=== PATIENT | female | born 1980 | race Caucasian/White ===

== ENCOUNTER 2016-10-27 09:30 | Outpatient (CLI) | payer OTHER ==
[~2016-10-27] VITALS: Ht 172.7 cm; Wt 106.8 kg
[2016-10-27] MEDS ORDERED: OMEPRAZOLE40 MG PO (14:25)
[2016-10-27] MEDS ORDERED: COZAAR50 MG PO (14:26)
[2016-10-27] MEDS ORDERED: LEXAPRO20 MG PO (14:26)
[2016-10-27] MEDS ORDERED: TRICOR48 MG PO (14:27)
[2016-10-27 14:40] VITALS: BP 123/77; Ht 172.7 cm; Wt 106.8 kg
[2016-10-27 16:29] LABS: BASOPHILS 0.6 % (0.0-2.0); HEMATOCRIT 32.2 % (36.0-48.0); HEMOGLOBIN 9.2 g/dL (12-16); IMMATURE GRANULOCYTES 0.2 % (0-5); LYMPHOCYTES 31.5 % (15-50); MCHC 28.6 g/dL (31.0-37.0); MCV 66.7 fL (80.0-100.0); MEAN PLATELET VOLUME 10.1 fL (7.4-10.4); MONOCYTES 7.1 % (2-11); NEUTROPHILS 59.6 % (40-80); PLATELET COUNT 212 10x3/uL (130-400); RBC 4.83 10x6/uL (4.00-5.40); WBC 8.3 10x3/uL (4.8-10.8)
--- NOTE | 2016-10-27 17:19 | NUR ---
1600 IV DC WITH CATHER TIP INTACT
[2016-12-22] MEDS ORDERED: TRICOR145 MG PO (11:15)
== END 2016-10-27 16:30 | disposition home or self-care (01) ==
LOC: D.OPS 09:30
PROVIDERS: Family Medicine
DX: D64.9 Anemia, unspecified (principal)

== ENCOUNTER 2016-12-09 03:20 | Emergency (ER) | payer OTHER ==
[2016-10-27 14:40] VITALS: BMI 35.8
[~2016-12-09 03:20] MED LIST: COZAAR50 MG PO; LEXAPRO20 MG PO; OMEPRAZOLE40 MG PO; TRICOR48 MG PO
[2016-12-09 04:50] LABS: BASOPHILS 0.4 % (0.0-2.0); EOSINOPHILS 1.5 % (0-7); HEMATOCRIT 32.1 % (36.0-48.0); HEMOGLOBIN 9.1 g/dL (12-16); IMMATURE GRANULOCYTES 0.3 % (0-5); LYMPHOCYTES 32.7 % (15-50); MCHC 28.3 g/dL (31.0-37.0); MCV 67.6 fL (80.0-100.0); MONOCYTES 6.5 % (2-11); NEUTROPHILS 58.6 % (40-80); PLATELET COUNT 189 10x3/uL (130-400); RBC 4.75 10x6/uL (4.00-5.40); RDW 20.3 % (11.5-14.5); WBC 8.9 10x3/uL (4.8-10.8)
[2016-12-09 04:56] LABS: MCH 19.2 pg (26.0-34.0)
[2016-12-09 05:01] LABS: HCG SERUM NEGATIVE (NEGATIVE)
== END 2016-12-09 05:35 | disposition home or self-care (01) ==
LOC: D.ER 03:20
PROVIDERS: Emergency Medicine
DX: N93.9 Abnormal uterine and vaginal bleeding, unspecified (principal); D64.9 Anemia, unspecified; I10 Essential (primary) hypertension; N83.209 Unspecified ovarian cyst, unspecified side; F17.200 Nicotine dependence, unspecified, uncomplicated

== ENCOUNTER 2016-12-25 05:06 | Inpatient (IN) | payer OTHER ==
[2016-12-22 12:04] LABS: BASOPHILS 0.5 % (0-2); HEMATOCRIT 33.1 % (36.0-48.0); HEMOGLOBIN 9.5 g/dL (12-16); IMMATURE GRANULOCYTES 0.2 % (0-5); LYMPHOCYTES 37.2 % (15-50); MCHC 28.7 g/dL (31.0-37.0); MCV 69.5 fL (80.0-100.0); NEUTROPHILS 56.1 % (40-80); PLATELET COUNT 185 10x3/uL (130-400); RBC 4.76 10x6/uL (4.00-5.40); RDW 22.1 % (11.5-14.5); WBC 6.1 10x3/uL (4.8-10.8)
[2016-12-22 12:25] LABS: CALC OSMOLALITY 278 mosm/kg (275-300); CALCIUM 9.6 mg/dL (8.5-10.1); CARBON DIOXIDE 26.5 mmol/L (21.0-32.0); CHLORIDE - SERUM 104 mmol/L (98-107); CREATININE - SERUM 0.6 mg/dL (0.6-1.3); GLUCOSE 99 mg/dL (74-106); POTASSIUM - SERUM 4.2 mmol/L (3.5-5.1); SODIUM 140 mmol/L (136-145); UREA NITROGEN 13 mg/dL (7-18); eGFR NON AFRICAN AMERICAN > 90 mL/min (90-120)
[~2016-12-25] VITALS: Ht 172.7 cm; Wt 107.0 kg
[2016-12-25] VITALS (9 sets, daily range): BP systolic 103–173; BP diastolic 55–76; BMI 35.9
[~2016-12-25 05:06] MED LIST changes: +TRICOR145 MG PO
[2016-12-25 06:01] LABS: HCG URINE NEGATIVE (NEGATIVE)
--- NOTE | 2016-12-25 09:18 | NUR ---
FAMILY UPDATED ON PATIENT STATUS
--- NOTE | 2016-12-25 10:57 | NUR ---
METHALINE BLUE NOTED IN REVELES CATHETER DRAINAGE TUBE AND BAG
--- NOTE | 2016-12-25 11:30 | NUR ---
Received pt by bed from recovery with bedside report from Antoine Silvestre rn. Pt is awake and able to follow commands to move herself stretcher to bed. She does have O2 via NC that is placed on 2l/min, O2 sat at this time is 96%. IV to right wrist patent on LR placed on pump per orders. Abdomen soft to touch with large abd dressing to incision that is clean and dry, fortune to bedside drain with 50ml blue urine to urometer. SCD in place and on pump. Dilaudid STRUCTURAL STEEL DETAILER started and pt demonstrate correct use of supervisor wet pour button, she is rating pain at 8/10 to incision area and her back. Tordal 30mg sivp also given at this time. Pt ask if she could turn to her side due to back pain, reassured that she was able to position to provide most comfort and assistance offered but pt denies and is able to turn herself to her left side. Pillows to back, under abdomen and between her knees used for support and comfort. Side rails up x 2 with phone and call light in reach. Lights dimmed and spouse only per pt request called to room. Pt encouraged rest to aid with pain control.
--- NOTE | 2016-12-25 12:15 | NUR ---
Pt resting with eyes closed, responds answer appropriate. Rates pain at 5/10, denies nausea and is tolerating ice chips and water. Explained to pt and spouse that she could have clear liquids at this time and both state understanding. Urine remains blue in color, 100ml in fortune urometer. Pt does cough weakly when ask and encouraged her to use pillow to brace abdomen to control pain. Side rails up x 2 with phone and call light in reach. pt using her glue jointer feeder as needed. Spouse at bedside.
--- NOTE | 2016-12-25 13:00 | NUR ---
Pt spouse out to desk with request for ice chips, small cup provided.
--- NOTE | 2016-12-25 13:55 | NUR ---
Pt turned to her right side, little assistance from nurses needed. O2 decreased to 1l/min via NC, O2 sat 97-99%. Urine output 300ml per urometer. Pt denies nausea and questions when she will be able to "really eat" and understands that Md will keep on liquids till am but if she begins passing gas to let nurse know and Md can be notified for new orders. Side rails up x 2 with phone and call light in reach. Rates pain at 4/10 after she repositioned. She does use incentive spirometer correctly and coughs x 2. Spouse remains at bedside.
--- NOTE | 2016-12-25 16:00 | NUR ---
Pt awake and visiting with spouse. Rates pain at 6/10 but states "I can tolerate it ok" Howe remains to gravity drain with 275ml to urometer. Pt able to turn herself to left side with no assistance needed. Min. assistance needed to move up in bed. VS as charted with O2 sat of 97% without O2, NC removed and O2 turned off. Continue to deny nausea, also denies wanting any other fluids besides lemon[place] soda at this time. [email or web address], pt denies any questions or concerns at this time, Side rails up x 2 with phone and call light in reach. Spouse remains at bedside.
[2016-12-25 18:08] LABS: BASOPHILS 0.2 % (0-2); EOSINOPHILS 0 % (0-7); HEMATOCRIT 32.7 % (36.0-48.0); HEMOGLOBIN 9.3 g/dL (12-16); IMMATURE GRANULOCYTES 0.1 % (0-5); LYMPHOCYTES 19.5 % (15-50); MCH 20.9 pg (26.0-34.0); MCHC 28.4 g/dL (31.0-37.0); MCV 73.3 fL (80.0-100.0); MONOCYTES 6.3 % (2-11); NEUTROPHILS 73.9 % (40-80); RBC 4.46 10x6/uL (4.00-5.40); RDW 21.8 % (11.5-14.5); WBC 8.7 10x3/uL (4.8-10.8)
[2016-12-25 18:13] LABS: PLATELET COUNT 139 10x3/uL (130-400)
[2016-12-25 18:18] LABS: CALC OSMOLALITY 276 mosm/kg (275-300); CALCIUM 9.2 mg/dL (8.5-10.1); CARBON DIOXIDE 26.8 mmol/L (21.0-32.0); CHLORIDE - SERUM 106 mmol/L (98-107); CREATININE - SERUM 0.6 mg/dL (0.6-1.3); GLUCOSE 95 mg/dL (74-106); POTASSIUM - SERUM 4.1 mmol/L (3.5-5.1); SODIUM 140 mmol/L (136-145); UREA NITROGEN 7 mg/dL (7-18); eGFR NON AFRICAN AMERICAN > 90 mL/min (90-120)
--- NOTE | 2016-12-25 19:03 | NUR ---
Tordal 30mg given sivp for c/o pain that she rates at 5/10. Howe cath emptied with total of 2100ml, IV fluids cleared on pump with 949.40 lr infused and 7mg dilaudid used. bedside report to florencio Lockhart rn. side rails up x 2.
--- NOTE | 2016-12-25 19:14 | NUR ---
BEDSIDE REPORT REC'D FROM Faviola VEGAS RN. PT REC'D ON RIGHT SIDE IN SEMI FOWLERS POSITION. PILLOW REMOVED FROM BACK AND PATIENT ASSISTED WITH MOVING UP IN BED. PAIN 5/10 AT THIS TIME, ABD SORENESS AND "OCCASIONAL BURNING AT MY INCISION." DENIES NEED FOR ADDITIONAL INTERVENTION AT THIS TIME. REPORTS THAT SHE JUST REMOVED ICE PACK. BOWEL SOUNDS PRESENT AND ACTIVE X4 QUADRANTS, DENIES PASSING FLATUS UP TO THIS POINT. ABD PALPATES SOFT. DRSG TO INCISION, CLEAN AND DRY, NO DRAINAGE PRESENT. REVELES PRESENT TO BEDSIDE DRAINAGE. ICE WATER AND SODA GIVEN PER REQUEST. SCD'S ON, REMOVED FOR SKIN ASSESSMENT, SKIN WDL. FAMILY MEMBERS AT BEDSIDE, PT VISITING WITH THEM AT THIS TIME. BED IN LOW POSITION WITH UPPER SIDE RAILS RAISED X2. CL AND PHONE WITHIN REACH. PT VERBALIZED UNDERSTANDING OF CL USE. WILL CONT TO MONITOR AND ASSIST PRN.
--- NOTE | 2016-12-25 20:03 | NUR ---
PT CONTINUES TO VISIT WITH VISITORS. STATES PAIN REMAINS 4-5/10, DENIES NEED FOR FURTHER INTERVENTION AT THIS TIME. REVELES DRAINING WELL. PT COUGHING AND DEEP BREATHING INDEPENDENTLY. INCENTIVE SPIROMETER USED WHILE RN AT BEDSIDE WITH GOOD EFFORT. COUGH NONPRODUCTIVE AT THIS TIME. CUP OF ICE PROVIDED PER REQUEST. DENIES ADDITION NEEDS WILL CONT TO MONITOR AND ASSIST PRN.
--- NOTE | 2016-12-25 21:16 | NUR ---
ROUNDS MADE. PT LYING ON RIGHT SIDE AT THIS TIME. REPORTS THAT SHE REPOSITIONED SELF INDEPENNENLTLY WITHOUT DIFFICULTY D/T LOWER BACK PAIN. STATES THAT WITH REPOSITIONING BACK PAIN RESOLVED. NO FAMILY MEMBERS PRESENT AT THIS TIME. LIGHTS OFF PER REQUEST. PAIN REMAINS 4-5/10, ABD SORENESS AND TENDERNESS. DENIES NEED FOR ADDITIONAL INTERVENTION. ICE PACK REAPPLIED TO INCISION. INCISIONAL DRSG REMAINS CLEAN AND DRY AND INTACT WITH NO DRAINAGE PRESENT. BED IN LOW POSITION WITH UPPER SIDE RAILS RAISED X2. CL AND PHONE WITHIN REACH. DENIES ADDITIONAL NEEDS WILL CONT TO MONITOR AND ASSIST PRN.
--- NOTE | 2016-12-25 22:04 | NUR ---
CALLED TO ROOM VIA CL. PT SITTING ON EDGE OF BED. REQUESTED HELP WITH SCD'S STATES THAT SHE WAS ABLE TO GET THEM OFF BUT CAN'T GET THEM BACK ON. REPORTS THAT SHE SAT ON EDGE OF BED INDEPENDENTLY D/T BACK PAIN AND PRESSURE. REPORTS THAT PAIN WAS GREATLY RELIEVED JUST SITTING UP. INSTRUCTED TO NOTIFY RN FOR ASSISTANCE D/T INCREASED RISK FOR FALLING/INJURY R/T PAIN MEDICATIONS, VERBALIZED UNDERSTANDING, STATED "I JUST WANT TO BOTHER ANYONE IF I DON'T HAVE TO." REASSURED PT THAT SHE WOULD NOT BE BOTHERING ANYONE FOR ASSISTANCE THAT IT INCREASED HER SAFETY, VERBALIZED UNDERSTANDING. ASSISTED BACK TO BED. PT REQUESTED TO REMAIN ON HER BACK. ASSISTED WITH POSITION UP TOWARD HOB, BLE ELEVATED, HOB ELEVATED TO 30 DEGREES PER PT REQUEST. SCD'S REAPPLIED, ICE PACK APPLIED TO INCISION TOWEL PLACED BETWEEN SKIN AND ICE PACK. COUGHING AND DEEP BREATHING DONE WITH GOOD EFFORT, INCENTIVE SPIROMETER USED X10. REINFORCED TEACHING ON SPLINTING, VERBALIZED UNDERSTANDING. BED IN LOW POSITION WITH UPPER SIDE RAILS RAISED X2. CL AND PHONE WITHIN PT REACH. WILL CONT TO MONITOR AND ASSIST PRN.
--- NOTE | 2016-12-25 23:01 | NUR ---
ROUNDS MADE. PT LYING ON LEFT SIDE RESTING WITH EYES CLOSED. RESPIRATIONS REGULAR, NO S/S OF DISTRESS NOTED. BED REMAINS IN LOW POSITION WITH UPPER SIDE RAILS RAISED X2. CL AND PHONE REMAIN WITHIN PT REACH. WILL CONT TO MONITOR AND ASSIST PRN.
[2016-12-26 00:03] VITALS: BP 105/54
--- NOTE | 2016-12-26 00:03 | NUR ---
ROUNDS MADE. PT RESTING AT THIS TIME. AWAKENED FOR V/S, VSS. PT REPORTS THAT SHE IS ITCHING, REQUESTS BENADRYL IF ORDERED, NO ORDER PRESENT, DR. SOSA CONTACTED AND ORDER REC'D FOR 50 MG IVP X1. 1600 MLS LIGHT GREEN URINE EMPTIED FROM REVELES. CHILD CARE LEADER AND LR CONT TO INFUSE. PIV PATENT, NO REDNESS/WARMTH/SWELLING NOTED. INCISIONAL DRSG REMAINS CLEAN, DRY, AND INTACT WITH NO DRAINAGE. ICE PACK REAPPLIED BY PT. PAIN 03/12, PT REPORTS THAT SHE HAS PASSED FLATUS X1, "VERY SMALL THOUGH." STATES THAT SHE IS HAVING SOME SHARP AND SHOOTING "GAS PAINS." REQUESTS TORADOL AT NEXT AVAILABLE TIME. BED REMAINS IN LOW POSITION WITH UPPER SIDE RAILS RAISED X2. CL AND PHONE WITHIN PT REACH.
--- NOTE | 2016-12-26 00:19 | NUR ---
TORADOL AND BENADRYL GIVEN SIVP OVER 5 MINUTES PER ORDER, TOLERATED WELL. BOTH MEDICATIONS DISCUSSED WITH PT, VERBALIZED UNDERSTANDING. PT REPOSITIONED SELF TO RIGHT SIDE. RN PLACED PILLOW BEHIND BACK FOR COMFORT AND SUPPORT. PT REPORTS THAT SHE IS GOING TO TRY TO GO BACK TO SLEEP. WILL CONT TO MONITOR AND ASSIST PRN. BED IN LOW POSITION WITH UPPER SIDE RAILS RAISED X2. CL AND PHONE WITH IN REACH.
--- NOTE | 2016-12-26 00:49 | NUR ---
PAIN REASSESSMENT COMPLETED. PT RESTING WITH EYES CLOSED, DID NOT OPEN EYES WITH DOOR OPENING. RESPIRATIONS REGULAR, NO S/S OF DISTRESS NOTED. WILL CONT TO MONITOR AND ASSIST PRN. BED IN LOW POSITION WITH UPPER SIDE RAILS RAISED X2. CL AND PHONE WITHIN REACH.
--- NOTE | 2016-12-26 03:14 | NUR ---
RN TO PT BS. NEW BAG LR HUNG TO INFUSE VIA PUMP AT 125CC/HR. PT ASSISTED IN TURNING TO LEFT LATERAL POSITION. PT PROPPED AND SUPPORTED WITH PILLOWS. PT DENIES ANY NEEDS AT THIS TIME. BED IN LOW POSITION, SIDE RAILS UP TIMES 2, CALL LIGHT AND PHONE IN REACH. WILL CONT TO MONITOR PT STATUS.
[2016-12-26 04:42] VITALS: BP 112/61
--- NOTE | 2016-12-26 04:42 | NUR ---
ROUNDS MADE. VSS. NO VAG BLEEDING/DISCHARGE NOTED. ABD DRSG REMAINS CDI WITH NO DRAINAGE PRESENT. PT REPORTS THAT SHE HAS PASSED FLATUS AND IT HAS RELIEVED "SOME" OF THE ABD DISCOMFORT/PAIN. PAIN CURRENTLY 4-5/10. 800 MLS LIGHT GREEN TINGED URINE EMPTIED FROM REVELES. PT REPORTS THAT DESIGN SALES CONSULTANT IS CONTROLLING PAIN WELL. ASSISTED WITH REPOSITIONING TO LEFT SIDE. SCDS REMAIN ON. ICE CHIPS GIVEN PER REQUEST. DENIES ADDITIONAL NEEDS. PILLOWS PLACED BEHIND BACK FOR COMFORT AND SUPPORT. BED IN LOW POSITION WITH UPPER SIDE RAILS RAISED X2. CL AND PHONE WITHIN REACH. WILL CONT TO MONITOR AND ASSIST PRN.
--- NOTE | 2016-12-26 06:14 | NUR ---
PAIN 6/10. TORADOL GIVEN SIVP PER ORDER AND PT REQUEST. ABD DRSG REMAINS C,D,I WITH NO DRAINAGE PRESENT. PT REPORTS THAT SHE HAS PASSED MORE FLATUS. PT DENIES ADDITIONAL NEEDS AT THIS TIME. NO VAG BLEEDING/DISCHARGE. PT REPOSITIONED TO BACK INDEPENDENTLY. BED REMAINS IN LOW POSITION WITH UPPER SIDE RAILS RAISED X2. CL AND PHONE WITHIN REACH. WILL CONT TO MONITOR AND ASSIST PRN.
[2016-12-26 06:59] LABS: BASOPHILS 0.4 % (0-2); EOSINOPHILS 0.6 % (0-7); HEMATOCRIT 30.1 % (36.0-48.0); HEMOGLOBIN 8.6 g/dL (12-16); IMMATURE GRANULOCYTES 0.2 % (0-5); LYMPHOCYTES 28.9 % (15-50); MCH 20.8 pg (26.0-34.0); MCHC 28.6 g/dL (31.0-37.0); MCV 72.9 fL (80.0-100.0); MEAN PLATELET VOLUME 9.6 fL (7.4-10.4); NEUTROPHILS 61.9 % (40-80); PLATELET COUNT 134 10x3/uL (130-400); RBC 4.13 10x6/uL (4.00-5.40); RDW 21.8 % (11.5-14.5)
[2016-12-26 07:01] LABS: WBC 5.4 10x3/uL (4.8-10.8)
[2016-12-26 07:07] LABS: CALC OSMOLALITY 276 mosm/kg (275-300); CALCIUM 9.2 mg/dL (8.5-10.1); CARBON DIOXIDE 27.5 mmol/L (21.0-32.0); CHLORIDE - SERUM 105 mmol/L (98-107); CREATININE - SERUM 0.7 mg/dL (0.6-1.3); GLUCOSE 100 mg/dL (74-106); POTASSIUM - SERUM 3.7 mmol/L (3.5-5.1); SODIUM 140 mmol/L (136-145); UREA NITROGEN 6 mg/dL (7-18); eGFR NON AFRICAN AMERICAN > 90 mL/min (90-120)
[2016-12-26 07:45] VITALS: BP 115/66
--- NOTE | 2016-12-26 07:45 | NUR ---
AM assessment completed as charted on flowsheet. VSS as on graphic. Pt is alert and awake and sitting up in bed, rates pain at 3/10. Abdomen soft to touch with bowel sounds active x 4 and per pt she has started passing gas, incision site is clean and dry with nilson, Dr Witt has already removed bandage when he rounded this am.
--- NOTE | 2016-12-26 09:45 | NUR ---
Called to room, she states she is ready for her shower. Has been walking about room without difficulty and has voided 100ml dark but clear urine. Denies nausea and rates her pain at 3/10. Towels provided and pt gathers her personnel things togather. Prior to shower she complains of tenderness to touch at iv site, no redness or swelling noted and continue to flush easily but do pt continue complaint and discomfort IV is removed after explained to her that based on any further lab work Dr Witt may order the IV could be restarted. She states her understanding and remains with choice to have IV removed, this is done with cath intact. Pt amb to bathroom per herself, shower seat already in shower. Pt states understanding to use call light in shower if nurse is needed. Bed linens changed, pt will call when finished and dressed so that teaching about incision care at home can begin.
[2016-12-26 10:24] VITALS: Ht 172.7 cm; Wt 107.0 kg
--- NOTE | 2016-12-26 10:50 | NUR ---
Pt amb to ice machine that out to nursery windows. Denies need for assistance, states understanding that if dizziness or nausea occur to sit where she may be and call for nurse.
--- NOTE | 2016-12-26 11:18 | NUR ---
Pt back to room after walking around unit once. Ask for pain med for cramping and burning that she rates at 4/10. [place] given as charted on emar, Nicoderm 14mg to right upper arm per pt request. Lights dimmed, side rails up x 2 with phone and call light in reach.
--- NOTE | 2016-12-26 12:37 | NUR ---
Pt calls for Iburprofen, continue to rate pain at 5/10. Encouraged rest at this time since she has been up walking most of the morning. Positions self to her right side with pillows for support. Lights turned down per request, side rails up x 2 with phone in reach.
--- NOTE | 2016-12-26 14:00 | NUR ---
Pt amb to ice machine with her daughter, denies any need for assistance at this time.
--- NOTE | 2016-12-26 15:16 | NUR ---
Pain med given as charted on emar per pt request. Rates at 03/12, she has just returned to her room from walking to front of the hospital with family members. ice pack also provided per pt request, side rails up x 2 with phone and call light in reach.
--- NOTE | 2016-12-26 18:01 | NUR ---
Pt calls out with complaint of cramping and burning at incision site, request pain med if time. Motrin given as charted on emar. No other needs at this time.
--- NOTE | 2016-12-26 19:05 | NUR ---
RCVD PT FROM Nuria VEGAS, AM SHIFT RN. PT SITTING ON SIDE OF BED AT THIS TIME WITH REPORTS THAT SHE'S "NOT FEELING WELL." PT C/O PAIN 02/10 @ INCISION SITE. PLANS TO BRING NORCO 10 PER ORDERS @ 1914. PT VERBALIZED UNDERSTANDING. ASSESSMENT COMPLETE AT THIS TIME. HR-RRR, PPP, BREATH SOUNDS CLEAR AND UNLABORED X2. PT REPORTS PASSING GAS AND AMB FREQUENTLY. ADV PT NOT TO OVER DO IT AND TO REST SOME. PT VERBALIZED UNDERSTANDING. BLE C/D/I WITH DESIREE INTACT. PERIPAD PLACED OVER INCISION TO KEEP IT DRY. ADV PT TO LET IT AIR OUT SOME TONIGHT BEFORE GOING TO BED TO DRY IT OUT COMPLETELY AND PLACE CLEAN PERIPAD TO SITE. PT VERBALIZED UNDERSTANDING TO ALL. FAMILY REMAINS AT BEDSIDE AT THIS TIME. PT DENIES FURTHER NEEDS. BED LOW, WHEELS LOCKED, CL IN REACH, SIDE RAILS UP X2.
[2016-12-26 19:08] VITALS: BP 133/60
--- NOTE | 2016-12-26 20:05 | NUR ---
PAIN REASSESSMENT COMPLETE. PT LYING IN BED WITH HOB 30 DEGREES WATCHING TV AND LAUGHING LOUDLY WITH FAMILY AT THIS TIME. PT RATES CURRENT PAIN 4/10 AND TOLERABLE. WILL CONT. TO MONITOR.
--- NOTE | 2016-12-26 21:34 | NUR ---
PT SHAHEEN IN [place]. ASKS RN IF SHE CAN GET PRILOSEC ORDERED. CALL PLACED TO DR MELTON. NEW ORDERS RECEIVED FOR 20MG PRILOSEC AT THIS TIME.
--- NOTE | 2016-12-26 21:59 | NUR ---
PRILOSEC/PROTONIX GIVEN PER ORDERS. SEE EMAR. PT INQUIRES ABOUT PAIN MEDICATION. ADV PT OF PRN MED SCHEDULE FOR NORCO @ 2315 AND MOTRIN @ MIDNIGHT. PT VERBALIZED UNDERSTANDING. FAMILY REMAINS IN ROOM WITH PT. PT DENIES FURTHER NEEDS. WILL CONT. POC.
--- NOTE | 2016-12-26 23:25 | NUR ---
NORCO 10/325MG X1 TAB AND MOTRIN 600MG X1 TAB GIVEN PER PT REQUEST, SEE EMAR. PT DENIES FURTHER NEEDS AT THIS TIME. WILL CONT. TO MONITOR.
--- NOTE | 2016-12-27 00:10 | NUR ---
PAIN REASSESSMENT COMPLETE. PT RATES PAIN 7/10 DESCRIBED STINGING AND BURNING. WARM BLANKET PROVIDED AND CLEAN PERIPAD PLACED OVER INCISION WITH SLIGHT MOISTURE NOTED AROUND DESIREE. EDU PT ON KEEPING INCISION C/D. PT VERBALIZED UNDERSTANDING. PT STATES FAMILY ARE GONE FOR THE NIGHT. ADV PT TO REST. LIGHTS TURNED OFF AT THIS TIME. WILL CONT. POC.
--- NOTE | 2016-12-27 02:07 | NUR ---
ROUNDS MADE. PT LYING ON BACK, HOB 20 DEGREES, EYES CLOSED, RESP EVEN & UNLABORED. PT LEFT UNDISTURBED AT THIS TIME.
--- NOTE | 2016-12-27 04:00 | NUR ---
ROUNDS MADE. PT LYING ON BACK. EYES CLOSED, RESP EVEN & UNLABORED. PT LEFT UNDISTURBED AT THIS TIME.
--- NOTE | 2016-12-27 06:10 | NUR ---
PT RINGS CL REQUESTING NORCO 10/325 MG, SAME GIVEN. ICE WATER PROVIDED WELL. PT DENIES FURTHER NEEDS AT THIS TIME.
--- NOTE | 2016-12-27 07:05 | NUR ---
PAIN REASSESSMENT COMPLETE. PT RATES PAIN 5/10 AT THIS TIME AND TOLERABLE. BEDSIDE REPORT GIVEN TO Alfred BUCIO RN.
[2016-12-27 07:34] VITALS: BP 123/69
--- NOTE | 2016-12-27 10:00 | NUR ---
PT STATES THAT DR MELTON GAVE HER OPTION THIS MORNING TO STAY OR GO HOME THIS AFTERNOON. PT STATES SHE WOULD LIKE TO GO HOME THIS AFTERNOON.
--- NOTE | 2016-12-27 10:30 | NUR ---
PT AMBULATING IN HALLWAY. REQUESTING PAIN MEDICATION. CO PAIN LOWER ABD AREA. RATES PAIN AN 8 ON SCALE OF 0-10.
[2016-12-27] MEDS ORDERED: HYDROCODONE-APA1 TAB PO ×2 (11:23→11:27)
[2016-12-27] MEDS ORDERED: IBUPROFEN600 MG PO ×2 (11:24→11:27)
--- NOTE | 2016-12-27 13:15 | NUR ---
discharge inst verbal and written given. pt prescriptions x2 given with drug info sheets. post po hysterectomy inst given pt denies questions. pt refuses w/c to discharge but requests to ambulate to auto. discharge home with .
--- NOTE | 2017-01-08 07:59 | OP ---
PATIENT NAME: ANTONIETTA MODI MEDICAL RECORD: [id number] :78 LOCATION:[id number] ADMISSION DATE:12/25/16 SURGEON: CARTER WITT MD DATE OF OPERATION: 12/25/2016 PREOPERATIVE DIAGNOSES: 1. Uterine fibroids. 2. Menorrhagia. 3. Anemia. POSTOPERATIVE DIAGNOSES: 1. Uterine fibroids. 2. Extensive adhesive disease. 3. Extensive endometriosis. PROCEDURE: Supracervical hysterectomy and lysis of adhesions. SURGEON: Carter Witt MD ANESTHESIA: General endotracheal. INTRAVENOUS FLUIDS: Per anesthesia record. ESTIMATED BLOOD LOSS: Approximately 600 cc. SPECIMENS: Uterus with partial cervix. FINDINGS: 1. Enlarged fibroid uterus approximately 700 grams. 2. Extensive endometriosis involving the posterior cul-de-sac and bilateral adnexa. 3. left endometrioma. COMPLICATIONS: None apparent. DESCRIPTION OF THE PROCEDURE: The patient was taken to the operating room where general anesthesia was achieved without difficulty. The patient was then prepped and draped in normal sterile fashion in the dorsal supine position. A vaginal and abdominal prep were performed and a Howe catheter had been placed. A Pfannenstiel skin incision was made, extended downward to the underlying subcutaneous fat to level of the fascia, which was then excised in the midline using the scalpel and excised bilaterally using the Gan scissors. Superior and inferior aspects of the fascial incision were then grasped with John clamps and dissected sharply from the underlying rectus muscle using the Gan scissors and Bovie cautery. The pyramidalis muscle was then in the midline using the Metzenbaum scissors and the rectus muscles were then further bluntly dissected in the midline, inferiorly. The Metzenbaum scissors were used to enter the peritoneal cavity at the superior aspect of the incision. The peritoneal incision was then stretched and excised bilaterally using the Metzenbaum scissors. The uterus was then identified and found to be large and relatively immobile. Three moist lap sponges were then placed in the posterior cul-de-sac. The round ligament was identified on the right side of the uterus and found to be deep in the pelvis. The uterus was unable to be exteriorized through the incision due to its size and immobility. At this point, attention was turned to the right adnexa where the fallopian tube and ovary were found to OPERATIVE REPORT [id number] ANTONIETTA MODI be complex with extensive endometriosis in the ovarian fossa. This was bluntly and sharply dissected using the Metzenbaum scissors. Extreme anatomic distortion was noted due to a large 6-7 cm fibroid. The proximal fallopian tube was clamped with 2 John clamps, cut and suture ligated using 0 Vicryl. Attention was then turned to the uteroovarian ligament, which was clamped, cut and suture ligated with 0 Vicryl as well. Extensive dissection was performed over the right uterine artery. The round ligament was eventually identified, grasped with John clamps times 2, cut, and suture ligated with 0 Vicryl. A bladder flap was created across the lower aspect of the uterus by excising the anterior leaf of the broad ligament and was carefully dissected downward as the anatomy was very distorted. Further dissection was then performed until the uterine vessels were identified and was grasped with a curved Scottie clamp, inferior to large fibroid. Attention was then turned to the left side where on a similar fashion, the fallopian tube was clamped times 2 with John clamps on the proximal aspect of the uterus, cut and suture ligated with 0 Vicryl. There was a left tubo-ovarian complex due to endometriosis and the tube and ovary were densely adherent in the left ovarian fossa. This was sharply and bluntly dissected until the ovary was relatively detached from the uterus on its distal portion. The utero-ovarian ligament was identified, clamped times 2 with straight Scottie clamps, cut and suture ligated. The left round ligament was identified, it was clamped with John clamps times 2, cut, and suture ligated with 0 Vicryl suture. The bladder flap was then connected from the left to the previous incision on the right and bladder dissection was performed sharply and bluntly. The left uterine artery was then skeletonized with extensive adhesions being lysed using the Metzenbaum scissors. The left uterine artery was then grasped with a curved Scottie clamp. The bilateral uterine arteries were then transected using the Gan scissors and suture ligated with good hemostasis noted. The cardinal ligaments were grasped in successive bites with straight Scottie clamps, cut and suture ligated. Extensive lysis of adhesion was performed to the posterior cul-de-sac. It was felt that due to blood loss and extensive posterior adhesions to proceed with a supracervical hysterectomy. At that point, the uterus was amputated. The endocervical canal was then cauterized to decrease postoperative bleeding and the cervix was oversewn using 0 Vicryl suture in an interrupted [id number] fashion. Good hemostasis was noted from all of the pedicles. The adnexa were then examined and the tube and ovaries bilaterally were found to be densely adherent into a tubo-ovarian complex likely resulting from endometriosis. It was felt that attempts to remove the fimbriated ends of the tube would likely result in the necessity for bilateral oophorectomy. Prior to the surgery, the patient was explained the risk of subsequent cancer with the fallopian tubes and ovaries and patient was adamant about keeping the ovaries, so the ovaries and tubes were left intact. The FloSeal was placed on all surgical sites. After irrigation, the laps were removed from the pelvis, counts were correct times 2. The fascia was then repaired with 0 loop PDS times 1 and the skin repaired with nilson. The patient tolerated the procedure well, transferred to postanesthesia recovery stable without incident. TRANSINT:[id number] Voice Confirmation ID: [id number] DOCUMENT ID: [id number] at [id number] CC: [id number] DICTATION DATE: 12/26/16 0742 PRODUCT INSPECTION COORDINATOR: 12/26/16 1334 ADM IN [facility] [address] [id number]
== END 2016-12-27 13:30 | disposition home or self-care (01) | DRG 743 ==
LOC: D.SDCHOLD 05:06 → D.LD 05:06 → D.SDCHOLD 07:30 → D.LD 11:03
PROVIDERS: ADMIT Obstetrics & Gynecology
PROC: 0UT90ZZ Resection of Uterus, Open Approach (ICD-10-PCS; principal; 2016-12-25 07:30)
DX: D25.9 Leiomyoma of uterus, unspecified (principal); D64.9 Anemia, unspecified; N80.9 Endometriosis, unspecified; N92.0 Excessive and frequent menstruation with regular cycle; I10 Essential (primary) hypertension; F41.8 Other specified anxiety disorders; K21.9 Gastro-esophageal reflux disease without esophagitis; Z72.0 Tobacco use

== ENCOUNTER → 2018-09-04 07:41 | Outpatient (CLI) | payer BC ==
[2016-12-26 10:24] VITALS: BMI 35.8
[~2018-09-04 07:41] MED LIST changes: +HYDROCODONE-APA1 TAB PO; +IBUPROFEN600 MG PO
== END | disposition home or self-care (01) ==
LOC: D.US 09-02 08:00
DX: R10.11 Right upper quadrant pain (principal)